=== PATIENT | male | born 1980 | race Caucasian/White ===

== ENCOUNTER 2017-11-09 10:15 | Emergency (ER) | payer BC ==
[2017-11-09] MEDS ORDERED: METHOCARBAMOL 750 MG TABLET PO ONE (10:51)
[2017-11-09] MEDS ORDERED: IBUPROFEN 800 MG TABLET PO ONE (10:51)
--- NOTE | 2017-11-09 10:52 | ER Document Report ---
HPI - HPI Pain Level: 3 Context: Patient is a 37-year-old male presents emergency department via EMS with a chief complaint of low back pain. 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 Patient states that he is been having more back spasms in his back he is having difficulty sleeping. Patient states that he was encouraged to come to the ER by his since he has been sleep deprived for the past 3 nights and his is concerned that he is going to have a seizure. He does have a known history of epilepsy and is on valproic acid and phenytoin. He states he has been compliant. Last seizure was 8 years ago. Has not had any seizures over the past couple of days. Regarding his back pain he admits to right-sided discomfort with associated sciatica. Patient states that he has occasionally taken Robaxin in the past for his back spasms which helped significantly. He denies any urinary/stool incontinence, saddle anesthesia. Been walking without any difficulty or weakness - DERM Skin Color: Normal, [place] Past Medical History - Social History Smoking Status: Former Smoker Chew tobacco use (# tins/day): No Frequency of alcohol use: None Drug Abuse: None Family History: Reviewed & Not Pertinent Patient has suicidal ideation: No Patient has homicidal ideation: No Neurological Medical History: Reports: Hx Seizures Renal/ Medical History: Denies: Hx Peritoneal Dialysis Past Surgical History: Reports: Hx Orthopedic Surgery Vertical Provider Document - CONSTITUTIONAL Agree With Documented VS: Yes Notes: PHYSICAL EXAM GENERAL: Alert, interacts well. HEAD: Normocephalic, atraumatic. EYES: Pupils equal, round, and reactive to light. Extraocular movements intact. ENT: Oral mucosa moist, tongue midline. NECK: Full range of motion. Supple. Trachea midline. Back: 5 out of 5 strength both distally and proximally bilateral lower extremities. 2+ patellar reflexes bilaterally. No clonus. Sensation grossly intact in the bilateral lower extremities. Patient is able to ambulate without difficulty. EXTREMITIES: Moves all 4 extremities spontaneously. No edema, radial and dorsalis pedis pulses 2/4 bilaterally. No cyanosis. NEUROLOGICAL: Alert and oriented x4. Normal speech. PSYCH: Normal affect, normal mood. SKIN: Warm, dry, normal turgor. No rashes or lesions noted. - INFECTION CONTROL TRAVEL OUTSIDE OF THE [place] IN LAST 30 DAYS: No Course - Re-evaluation Re-evalutation: 11/09/17 12:52 Patient is a 37-year-old male presents emergency department the chief complaint of low back pain. The patient presents with low back pain without signs of spinal cord compression, cauda equina syndrome, infection, aneurysm, or other serious etiology. The patient is neurologically intact. Given the extremely low risk of these diagnoses further testing and evaluation for these possibilities does not appear to be indicated at this time. He is concerned that his sleep deprivation is likely cause a seizure. Discussed with him that as long as he is compliant with his seizure medications and if he has relief from the muscle relaxers that he should be able to sleep and avoid this. Patient states that he feels much better after receiving Robaxin in the ED. Requesting to be discharged home the patient has been instructed to return if the symptoms worsen or change in any way. - Vital Signs Vital signs: Temp Pulse Resp BP Pulse Ox 98.3 F 91 18 177/108 H 98 11/09/17 10:19 11/09/17 10:19 11/09/17 10:19 11/09/17 10:19 11/09/17 10:19 Discharge - Discharge Clinical Impression: Low back pain Qualifiers: Chronicity: chronic Back pain laterality: right Sciatica presence: with sciatica Sciatica laterality: sciatica of right side Qualified Code(s): M54.41 - Lumbago with sciatica, right side Condition: Good Disposition: HOME, SELF-CARE Additional Instructions: LOW BACK PAIN: Three out of every four people will have an episode of disabling back pain during their lifetime. Most commonly the pain is due to straining of the muscles and ligaments in the low back. Usual treatment includes: (1) Rest on a firm surface. Avoid lying on your stomach. (2) Ice pack the painful area. After a few days, gentle heat may be used intermittently to relax the area, or ice packs can be continued. (3) Medication may be needed -- muscle relaxers and antiinflammatory medicines are commonly used. (4) As the back improves, exercises are prescribed to strengthen the back and abdominal muscles. Your doctor will advise you on the proper care for your back at each stage in your recovery. You may be better in a few days -- or healing may take several weeks. If new symptoms of a "herniated disc" (radiation of pain, numbness, or tingling down the back of the leg or weakness in the leg) occur, you should be re-examined. Further testing may be necessary. MUSCLE RELAXERS: Muscle relaxing medications are usually prescribed for acute muscle spasm or injury to the neck and back. They are often combined with antiinflammatory pain medication for increased relief. You may stop the muscle relaxer when the pain and stiffness have improved. Start the medication again if spasms recur. Muscle relaxers may cause drowsiness, especially with the first dose. Do not operate machinery or drive while under the effects of the medication. Most muscle relaxers last up to 24 hours. Do not combine the medication with alcohol. ICE PACKS: Apply ice packs frequently against the painful area. Many different schedules are recommended, such as "20 minutes on, 20 minutes off" or "one hour ice, two hours rest." If you need to work, you may need to go longer between ice treatments. You should plan to have the area ice packed AT LEAST one fourth of the time. The ice should be applied over the wrap, tape, or splint, or over a layer of cloth -- not directly against the skin. Some ice bags have a built-in cloth and can be put directly on the skin. WARM PACKS: After approximately two days, apply gentle heat (such as a heating pad or hot water bottle) for about 20 to 30 minutes about every two hours -- at least four times daily. Warmth and elevation will help you make a more rapid recovery , and will ease the pain considerably. Do not use HOT heat, and never apply heat for longer than 30 minutes. The continuous heat can invisibly damage skin and muscles -- even when no burn is seen on the surface. Damaged muscles can make you MORE sore. FOLLOW-UP CARE: If you have been referred to a physician for follow-up care, call the physician s office for an appointment as you were instructed or within the next two days. If you experience worsening or a significant change in your symptoms, notify the physician immediately or return to the Emergency Department at any time for re-evaluation. Prescriptions: Diclofenac Sodium [Voltaren] 100 gm TP Q4HP PRN #1 gel..gram. PRN Reason: Ibuprofen [Motrin 800 mg Tablet] 800 mg PO Q8H PRN #30 tab PRN Reason: Methocarbamol [Robaxin 750 mg Tablet] 750 mg PO ASDIR PRN #40 tablet PRN Reason: Forms: Elevated Blood Pressure Referrals: YENNI NEVAREZ MD [ACTIVE STAFF] - Follow up in 1 month
[2017-11-09 13:01] VITALS: BP 164/86
== END 2017-11-09 13:01 | disposition home or self-care (01) ==
LOC: ER 10:15
DX: G89.29 Other chronic pain (principal); M54.41 Lumbago with sciatica, right side; G40.909 Epilepsy, unspecified, not intractable, without status epilepticus; Z79.899 Other long term (current) drug therapy; Z87.891 Personal history of nicotine dependence; Z72.820 Sleep deprivation
CPT/HCPCS: 99283; 36415; 80164; J3490

== ENCOUNTER 2018-09-25 02:52 | Emergency (ER) | payer SELFPAY ==
[2018-09-25 04:02] LABS: ABSOLUTE BASOPHILS # (AUTO) 0.1 10^3/uL (0.0-0.2); ABSOLUTE EOSINOPHILS # (AUTO) 0.1 10^3/uL (0.0-0.6); ABSOLUTE LYMPHOCYTES (AUTO) 2.1 10^3/uL (0.5-4.7); ABSOLUTE MONOCYTES (AUTO) 1.9 10^3/uL (0.1-1.4); ABSOLUTE NEUT (AUTO) 13.6 10^3/uL (1.7-8.2); BASOPHILS % (AUTO) 0.4 % (0-2); EOSINOPHILS % (AUTO) 0.4 % (0-6); HEMATOCRIT 49.6 % (37.9-51.0); LYMPHOCYTES % (AUTO) 11.7 % (13-45); MEAN CORPUSCULAR HEMOGLOBIN 28.3 pg (27.0-33.4); MEAN CORPUSCULAR HGB CONC 34.3 g/dL (32.0-36.0); MEAN CORPUSCULAR VOLUME 83 fl (80-97); MONOCYTES % (AUTO) 10.8 % (3-13); PLATELET COUNT 234 10^3/uL (150-450); RED BLOOD COUNT 6.01 10^6/uL (4.35-5.55); RED CELL DISTRIBUTION WIDTH 13.3 % (11.5-14.0); SEGMENTED NEUTROPHILS % (AUTO) 76.7 % (42-78); TOTAL CELLS COUNTED % (AUTO) 100 %; WHITE BLOOD COUNT 17.7 10^3/uL (4.0-10.5)
[2018-09-25 04:13] LABS: ALANINE AMINOTRANSFERASE 43 U/L (21-72); ALBUMIN 4.6 g/dL (3.5-5.0); ALKALINE PHOSPHATASE 52 U/L (38-126); ANION GAP 14 (5-19); ASPARTATE AMINO TRANSFERASE 26 U/L (17-59); BILIRUBIN,DIRECT 0.3 mg/dL (0.0-0.4); BILIRUBIN,TOTAL 0.3 mg/dL (0.2-1.3); BLOOD UREA NITROGEN 22 mg/dL (7-20); CALCIUM 10.2 mg/dL (8.4-10.2); CARBON DIOXIDE 25 mmol/L (22-30); CHLORIDE 101 mmol/L (98-107); GLUCOSE 108 mg/dL (75-110); LIPASE 89.3 U/L (23-300); POTASSIUM 4.4 mmol/L (3.6-5.0); SODIUM 139.6 mmol/L (137-145); TOTAL PROTEIN 7.7 g/dL (6.3-8.2)
[2018-09-25] MEDS ORDERED: NORMAL SALINE 1000 ML 1,000 ML IV ONE (04:29)
--- NOTE | 2018-09-25 04:31 | ER Document Report ---
ED GI/ - General Chief Complaint: Nausea/Vomiting/Diarrhea Stated Complaint: VOMITING Time Seen by Provider: 09/25/18 04:14 Primary Care Provider: ALMA MARES MD [Primary Care Provider] - Follow up as needed Notes: Patient is a 38-year-old male that comes to the emergency department for chief complaint of vomiting multiple times and episode of loose stools. He states that he was belching before going to bed, after he woke up he vomited multiple times. He denies hematemesis, hematochezia, fever. No obvious sick contacts, raw food, or recent antibiotic reported. He denies any daily medications or medical history other than occasional smoking. TRAVEL OUTSIDE OF THE [place] IN LAST 30 DAYS: No - Related Data Allergies/Adverse Reactions: No Known Allergies Allergy (Verified 11/09/17 10:25) Past Medical History - General Information source: Patient - Social History Smoking Status: Current Some Day Smoker Frequency of alcohol use: None Drug Abuse: None Lives with: Family Family History: Reviewed & Not Pertinent Patient has suicidal ideation: No Patient has homicidal ideation: No Neurological Medical History: Reports: Hx Seizures Renal/ Medical History: Denies: Hx Peritoneal Dialysis Past Surgical History: Reports: Hx Orthopedic Surgery - Lt rotator cuff; cervical fusion - Immunizations Hx Diphtheria, Pertussis, Tetanus Vaccination: Yes Review of Systems - Review of Systems Constitutional: No symptoms reported EENT: No symptoms reported Cardiovascular: No symptoms reported Respiratory: No symptoms reported Gastrointestinal: See HPI Genitourinary: No symptoms reported Male Genitourinary: No symptoms reported Musculoskeletal: No symptoms reported Skin: No symptoms reported Hematologic/Lymphatic: No symptoms reported Neurological/Psychological: No symptoms reported Physical Exam - Vital signs Vitals: Temp Pulse Resp BP Pulse Ox 98 F 88 20 126/86 H 96 09/25/18 02:59 09/25/18 02:59 09/25/18 02:59 09/25/18 02:59 09/25/18 02:59 - Notes Notes: GENERAL: Alert, interacts well. No acute distress. HEAD: Normocephalic, atraumatic. EYES: Pupils equal, round, and reactive to light. Extraocular movements intact. ENT: Oral mucosa dry, tongue midline. Oropharynx unremarkable. Airway patent. Nares patent, no nasal septal hematoma, TM's intact. NECK: Full range of motion. Supple. Trachea midline. LUNGS: Clear to auscultation bilaterally, no wheezes, rales, or rhonchi. No respiratory distress. HEART: Regular rate and rhythm. No murmur ABDOMEN: There is mild left upper and left mid to lower abdominal tenderness on exam, remaining abdomen is benign and unremarkable. GENITOURINARY: Deferred EXTREMITIES: Moves all 4 extremities spontaneously. No edema, normal radial and dorsalis pedis pulses bilaterally. No cyanosis. BACK: no cervical, thoracic, lumbar midline tenderness. No saddle anesthesia, normal distal neurovascular exam. NEUROLOGICAL: Alert and oriented x3. Normal speech. [cranial nerves II through XII grossly intact]. PSYCH: Normal affect, normal mood. SKIN: Warm, dry, normal turgor. No rashes or lesions noted. Course - Re-evaluation Re-evalutation: On second thought patient states he might have had some beef which did not sit well with him. This was within the past day. Possible toxic ingestion. However his abdomen is benign, he is well-appearing, he is not tachycardic or febrile. Patient does have leukocytosis at 17,000. Nonspecific. No bandemia. On reevaluation patient has not had additional vomiting, he states he feels much better. Discussing going home. Patient tolerated p.o. medications and fluids without any difficulty or repeated vomiting. No complaints on reevaluation. As result I suspect this is either viral or other etiology that was resolve on its own. I discussed treatment, discussed return precautions for acute abdomen, patient states satisfaction and agreement with plan. He is going home with his family now. - Vital Signs Vital signs: Temp Pulse Resp BP Pulse Ox 97.7 F 80 18 139/85 H 97 09/25/18 06:45 09/25/18 06:45 09/25/18 06:45 09/25/18 06:45 09/25/18 06:45 - Laboratory Result Diagrams: 09/25/18 03:46 09/25/18 03:46 Laboratory results interpreted by me: 09/25/18 09/25/18 03:46 03:46 WBC 17.7 H RBC 6.01 H Lymphocytes % 11.7 L Absolute Neutrophils 13.6 H Absolute Monocytes 1.9 H BUN 22 H Discharge - Discharge Clinical Impression: Vomiting and diarrhea Condition: Stable Disposition: HOME, SELF-CARE Additional Instructions: The exact cause of your symptoms is uncertain at this time. Suspect this is either viral or food toxin ingestion although this is not definite. Expectation is for the symptoms to resolve with time. Continue fluids at home to treat dehydration. Take Phenergan for nausea if needed, take famotidine as prescribed to help recovery. Start with bland food, slowly progress. I recommend initially avoiding caffeine, alcohol, smoking, NSAIDs, spicy food. Return if you worsen including uncontrolled vomiting, returned or worsening abdominal pain, fever, or any other concerning or worsening symptoms. Prescriptions: Famotidine [Pepcid 20 mg Tablet] 20 mg PO BID #12 tablet Promethazine HCl [Phenergan 25 mg Tablet] 25 mg PO Q6H PRN #20 tablet PRN Reason: Forms: Return to Work Referrals: ALMA MARES MD [Primary Care Provider] - Follow up as needed
[2018-09-25] MEDS ORDERED: ONDANSETRON HCL INJ/PF 4 MG/2 ML SDV IV ONE (04:46)
[2018-09-25] MEDS ORDERED: FAMOTIDINE 20 MG TABLET PO ONE (04:47)
[2018-09-25] MEDS ORDERED: SUCRALFATE 1 GM TABLET PO ONE (06:17)
[2018-09-25] MEDS ORDERED: PROMETHAZINE HCL 25 MG TABLET PO ONE (06:17)
[2018-09-25 06:54] VITALS: BP 139/85
[2018-09-25 07:00] LABS: APPEARANCE,URINE SLIGHTLY-CLOUDY; BILIRUBIN,URINE NEGATIVE (NEGATIVE); COLOR,URINE YELLOW; GLUCOSE, URINE NEGATIVE (NEGATIVE); KETONES,URINE NEGATIVE (NEGATIVE); LEUKOCYTE ESTERASE,URINE NEGATIVE (NEGATIVE); NITRITE,URINE NEGATIVE (NEGATIVE); PROTEIN,URINE NEGATIVE (NEGATIVE); URINE SPECIFIC GRAVITY 1.024; UROBILINOGEN,URINE NEGATIVE mg/dL (<2.0)
== END 2018-09-25 06:54 | disposition home or self-care (01) ==
LOC: ER 02:52
DX: R11.2 Nausea with vomiting, unspecified (principal); R19.7 Diarrhea, unspecified; F17.200 Nicotine dependence, unspecified, uncomplicated
CPT/HCPCS: 99284; 96361; 96374; 36415; 83690; 85025; 80053; 81001; J2405; J7030